=== PATIENT | male | born 1990 | race Caucasian/White ===

== ENCOUNTER 2017-05-17 20:49 | Emergency (ER) | payer OTHER ==
[~2017-05-17] VITALS: Ht 172.7 cm; Wt 66.7 kg
--- NOTE | 2017-05-17 21:18 | NUR ---
PT BIB [facility] TO ER BED 5, PT C/O POSSIBLE DISLOCATED RT SHOULDER, HAPPENED AN HOUR AGO. PT PLACED IN GOWN AND VS/[employer]ELOPMENT. VSS/RESP EVEN UNLABORED/NAD NOTED/SKIN WARM AND DRY/PT AO X4/DENIES N/V/D. AWAITING MD SOSA.
--- NOTE | 2017-05-17 21:30 | NUR ---
PT TO XRAY
--- NOTE | 2017-05-17 21:40 | NUR ---
18G IV TO L AC USING ASEPTIC TECH, FLUSHES EASILY WITH NS. PER MD ORDERS.
--- NOTE | 2017-05-17 21:40 | NUR ---
PT BACK FROM XRAY
[2017-05-17] MEDS ORDERED: ONDANSETRON HCL/PF 4 MG/2 ML VIAL ONE (22:06)
[2017-05-17] MEDS ORDERED: HYDROMORPHONE 1 MG/1 ML DISP.SYRIN ONE ×2 (22:06→22:25)
[2017-05-17] MEDS ORDERED: BUPIVACAINE 0.5 % PF 150 MG/30 ML VIAL ONE (22:07)
--- NOTE | 2017-05-17 22:10 | NUR ---
AT BEDSIDE FOR PROCEDURE
--- NOTE | 2017-05-17 22:13 | NUR ---
MD AT BEDSIDE FOR RT SHOULDER REDUCTION.
[2017-05-17] MEDS ORDERED: IV NS 0.9% 1,000 ML BAG IV ONE (22:30)
[2017-05-17] MEDS ORDERED: BUPIVACAINE 0.5 % PF 150 MG/30 ML VIAL IJ ONE (22:30)
[2017-05-17] MEDS ORDERED: ONDANSETRON HCL/PF 4 MG/2 ML VIAL IV ONE (22:30)
[2017-05-17] MEDS ORDERED: HYDROMORPHONE 1 MG/1 ML DISP.SYRIN IV ONE ×2 (22:30)
[2017-05-17] MEDS ORDERED: ETOMIDATE 2 MG/ML VIAL ONE (22:54)
--- NOTE | 2017-05-17 22:59 | NUR ---
DR JOHN AT BEDSIDE FOR MODERATE SEDATION/RT SHOULDER REDUCTION
[2017-05-17] MEDS ORDERED: ETOMIDATE 2 MG/ML VIAL IV ONE (23:00)
--- NOTE | 2017-05-17 23:09 | NUR ---
SUCCESSFUL MODERATE SEDATION FOR RT SHOULDER REDUCTION PER DR JOHN. RT AT BEDSIDE.
--- NOTE | 2017-05-17 23:16 | NUR ---
XRAY AT BEDSIDE WITH MD TO CONFIRM RT SHOULDER PLACEMENT.
--- NOTE | 2017-05-17 23:31 | NUR ---
PT AWAKE/ALERT, STATES HE FEELS "SO MUCH BETTER". VSS. WILL CONTINUE TO MONITOE CLOSELY.
[2017-05-18] MEDS ORDERED: IV NS 0.9% 1,000 ML BAG IV ONE
--- NOTE | 2017-05-18 00:03 | NUR ---
DR. JOHN AT BEDSIDE SPEAKING TO PT REGARDING RESULTS.
--- NOTE | 2017-05-18 00:18 | NUR ---
PT TALKING WITH FAMILY AT BEDSIDE, AWAKE/ALERT. VSS.
--- NOTE | 2017-05-18 00:37 | NUR ---
IV removed. Catheter intact and site benign. Pressure and 4x4 applied to site. No bleeding noted. Patient discharged with family to home in stable condition. Written and verbal after care instructions given, pt instructed not to drive. Patient verbalizes understanding of instruction. Pt ambulatory with a steady gait.
[2017-05-18 00:39] VITALS: BP 130/71
== END 2017-05-18 00:40 | disposition home or self-care (01) ==
LOC: ER 20:54
DX: S43.004A Unspecified dislocation of right shoulder joint, initial encounter (principal); X50.9XXA Other and unspecified overexertion or strenuous movements or postures, initial encounter; Y93.89 Activity, other specified; Y92.89 Other specified places as the place of occurrence of the external cause; Y99.8 Other external cause status
CPT/HCPCS: 23650; 73030 ×2; 96361; 96374; 96375; 99152; 99285; A4606 ×2; J1170 ×2; J2405; J3490 ×2; J7030; Z7610